=== PATIENT | male | born 1955 | race Caucasian/White ===

== ENCOUNTER 2023-01-05 12:55 | Emergency (ER) | payer OTHER ==
[~2023-01-05] VITALS: Ht 180.3 cm; Wt 70.3 kg
[2023-01-05 12:57] VITALS: BP 163/92
[2023-01-05] MEDS ORDERED: Percocet 5-3251 EACH PO (14:42)
[2023-01-05] MEDS ORDERED: CYCL10 PO (14:42)
== END 2023-01-05 14:59 | disposition home or self-care (01) ==
LOC: ER 12:55
DX: S01.81XA Laceration without foreign body of other part of head, initial encounter (principal); M54.50 Low back pain, unspecified; V89.2XXA Person injured in unspecified motor-vehicle accident, traffic, initial encounter
CPT/HCPCS: 70450; 72100; 72125; 90714; A9270